=== PATIENT | female | born 1970 | race Caucasian/White ===

== ENCOUNTER 2020-07-07 00:49 | Emergency (ER) | payer MEDICAID ==
--- NOTE | 2020-07-07 01:38 | EDM.PDOC ---
ED HPI GENERAL MEDICAL PROBLEM - General Chief Complaint: Upper Extremity Injury/Pain Stated Complaint: "I think I broke my elbow" Time Seen by Provider: 07/07/20 01:25 Source of Information: Reports: Patient History Limitations: Reports: No Limitations - History of Present Illness INITIAL COMMENTS - FREE TEXT/NARRATIVE: Gayle is a 49 yo female who presents to the Ed with c/o right elbow pain. She reports she has been drinking, was walking and slipped on the ice, landing on her right elbow. Denies any other injuries. Did not hit her head. She reports pain and swelling to the area. Is able to move elbow. No other complaints. 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 Right Elbow Pain Score (Numeric/FACES): 10 - Related Data Allergies Allergy/AdvReac Type Severity Reaction Status Date / Time No Known Allergies Allergy Verified 07/07/20 01:15 Home Meds: Home Meds Losartan Potassium 100 mg PO DAILY 12/19/17 [History] hydroCHLOROthiazide [Hydrochlorothiazide] 25 mg PO DAILY 12/19/17 [History] Loratadine [Claritin] 10 mg PO DAILY PRN 07/07/20 [History] Past Medical History Cardiovascular History: Reports: High Cholesterol, Hypertension Oncologic (Cancer) History: Reports: Breast, Cervix, Ovarian - Past Surgical History Cardiovascular Surgical History: Reports: None Musculoskeletal Surgical History: Reports: Arthroscopic Knee Social & Family History - Tobacco Use Tobacco Use Status *Q: Current Every Day Tobacco User Years of Tobacco use: 39 Packs/Tins Daily: 0.5 - Caffeine Use Caffeine Use: Reports: Coffee Review of Systems - Review of Systems Review Of Systems: Comprehensive ROS is negative, except as noted in HPI. ED EXAM, GENERAL - Physical Exam Exam: See Below Exam Limited By: No Limitations General Appearance: Alert, WD/WN, No Apparent Distress Eye Exam: Bilateral Eye: EOMI, PERRL Head: Atraumatic, Normocephalic Neck: Normal Inspection, Supple, Non-Tender, Full Range of Motion Respiratory/Chest: No Respiratory Distress, Lungs Clear, Normal Breath Sounds, No Accessory Muscle Use, Chest Non-Tender Cardiovascular: Normal Peripheral Pulses, Regular Rate, Rhythm, No Edema, No Gallop, No JVD, No Murmur, No Rub Peripheral Pulses: 2+: Radial (L), Radial (R) GI/Abdominal: Normal Bowel Sounds, Soft, Non-Tender, No Organomegaly, No Distention, No Abnormal Bruit, No Mass Back Exam: Normal Inspection, Full Range of Motion, NT Extremities: Normal Range of Motion, Normal Capillary Refill, Joint Swelling (mild swelling to right elbow ), Arm Pain (right elbow pain ) Neurological: Alert, Oriented, CN II-XII Intact, Normal Cognition, Normal Gait, Normal Reflexes, No Motor/Sensory Deficits Psychiatric: Normal Affect, Normal Mood Skin Exam: Warm, Dry, Intact, Normal Color, No Rash Lymphatic: No Adenopathy Course - Vital Signs Last Recorded V/S: Last Vital Signs Temp 97.8 F 07/07/20 00:55 Pulse 74 07/07/20 00:55 Resp 16 07/07/20 00:55 BP 135/77 07/07/20 00:55 Pulse Ox 99 07/07/20 00:55 - Orders/Labs/Meds Orders: Active Orders 24 hr Category Date Time Status Elbow Min 3V Rt [CR] Stat Exams 07/07/20 01:24 Taken Departure - Departure Time of Disposition: 01:38 Disposition: Home, Self-Care 01 Condition: Good Clinical Impression: Contusion of elbow, right Qualifiers: Encounter type: initial encounter Qualified Code(s): S50.01XA - Contusion of right elbow, initial encounter - Discharge Information *PRESCRIPTION DRUG MONITORING PROGRAM REVIEWED*: Not Applicable *COPY OF PRESCRIPTION DRUG MONITORING REPORT IN PATIENT [facility]: Not Applicable Instructions: Elbow Contusion Referrals: PCP,None [Ordering Only Provider] - Forms: ED Department Discharge Additional Instructions: - Ice affected area - Ibuprofen 600 mg every 6 hours as needed for pain/swelling - Rest and elevate extremity as needed - Follow up with PCP in clinic if pain worsens or does not improve over the next 7-10 days Sepsis Event Note (ED) - Evaluation Sepsis Screening Result: No Definite Risk - Focused Exam Vital Signs: Vital Signs Temp Pulse Resp BP Pulse Ox 07/07/20 00:55 97.8 F 74 16 135/77 99 - Problem List & Annotations (1) Contusion of elbow, right SNOMED Code(s): 47752245 Code(s): S50.01XA - CONTUSION OF RIGHT ELBOW, INITIAL ENCOUNTER Status: Acute Qualifiers: Encounter type: initial encounter Qualified Code(s): S50.01XA - Contusion of right elbow, initial encounter - My Orders Last 24 Hours: My Active Orders 07/07/20 01:24 Elbow Min 3V Rt [CR] Stat - Assessment/Plan Last 24 Hours: My Active Orders 07/07/20 01:24 Elbow Min 3V Rt [CR] Stat Assessment:: Contusion of elbow, right Plan: Xrays negative for acute fracture or dislocation. Recommend RICE therapies. Tylenol or ibuprofen as needed. Follow up if symptoms worsen or persist.
== END 2020-07-07 01:45 | disposition home or self-care (01) ==
LOC: CC.ED 00:49
DX: S50.01XA Contusion of right elbow, initial encounter (principal); I10 Essential (primary) hypertension; Z72.0 Tobacco use; Z79.899 Other long term (current) drug therapy; W00.0XXA Fall on same level due to ice and snow, initial encounter; Y93.01 Activity, walking, marching and hiking
CPT/HCPCS: 73080-RT; 99283-25

== ENCOUNTER 2023-11-06 11:37 | Emergency (ER) | payer SELFPAY | END 2023-11-06 11:56 | disposition home or self-care (01) | LOC: CC.ED 11:37 | DX: S80.821A Blister (nonthermal), right lower leg, initial encounter (principal); L08.89 Other specified local infections of the skin and subcutaneous tissue; I10 Essential (primary) hypertension; F17.210 Nicotine dependence, cigarettes, uncomplicated; E66.9 Obesity, unspecified; Z68.31 Body mass index [BMI] 31.0-31.9, adult; X58.XXXA Exposure to other specified factors, initial encounter | CPT/HCPCS: 99283 ==